=== PATIENT | male | born 1955 | race African-American/Black ===

== ENCOUNTER 2016-09-02 12:30 | Emergency (ER) | payer SELFPAY ==
[~2016-09-02] VITALS: Ht 180.3 cm; Wt 95.0 kg
[2016-09-02 12:54] VITALS: BP 158/83
[2016-09-02 13:09] LABS: *AMPHETAMINES SCREEN URINE NEGATIVE (NEGATIVE); *BARBITURATES SCREEN URINE NEGATIVE (NEGATIVE); *BENZODIAZEPINES SCREEN URINE NEGATIVE (NEGATIVE); *COCAINE SCREEN URINE PRESUMTIVE POSITIVE (NEGATIVE); CANNABINOID URINE SCREEN NEGATIVE (NEGATIVE); ECSTASY MDMA SCREEN URINE NEGATIVE (NEGATIVE); METHADONE URINE SCREEN NEGATIVE (NEGATIVE); OPIATES URINE SCREEN NEGATIVE (NEGATIVE); PHENCYCLIDINE URINE SCREEN NEGATIVE (NEGATIVE)
== END 2016-09-02 13:22 | disposition home or self-care (01) ==
LOC: ER 12:39
DX: G93.40 Encephalopathy, unspecified (principal); T40.5X1A Poisoning by cocaine, accidental (unintentional), initial encounter; F17.200 Nicotine dependence, unspecified, uncomplicated; Z59.0 Homelessness; Y93.89 Activity, other specified; Y99.9 Unspecified external cause status; Y92.89 Other specified places as the place of occurrence of the external cause
CPT/HCPCS: 80305; 99283